=== PATIENT | female | born 1990 | race Caucasian/White ===

== ENCOUNTER 2019-02-08 15:02 | Emergency (ER) | payer OTHER ==
[~2019-02-08] VITALS: Ht 152.4 cm; Wt 75.0 kg
[2019-02-08] MEDS ORDERED: OXYC1TAB23 PO (15:34)
[2019-02-08] MEDS ORDERED: WELLTAB40 PO (15:34)
[2019-02-08] MEDS ORDERED: TRAZ-163 PO (15:34)
[2019-02-08] MEDS ORDERED: PERCOCET PO (16:38)
[2019-02-08 16:51] VITALS: BP 154/89
== END 2019-02-08 17:00 | disposition home or self-care (01) ==
LOC: M ED 15:02
DX: Z76.0 Encounter for issue of repeat prescription (principal); Z79.899 Other long term (current) drug therapy